=== PATIENT | female | born 1955 | race Two or more races ===

== ENCOUNTER 2017-10-04 08:43 | Outpatient (CLI) | payer OTHER | END 2017-10-04 17:00 | disposition home or self-care (01) | LOC: MRI 08:43 | DX: M54.5 Low back pain (principal); M50.322 Other cervical disc degeneration at C5-C6 level | CPT/HCPCS: 72141 ==

== ENCOUNTER → 2018-10-05 | Outpatient (CLI) | payer OTHER | END | disposition home or self-care (01) | LOC: MAMO-SONO 08:45 → SONOGRAMA 08:52 | DX: M75.32 Calcific tendinitis of left shoulder (principal); M19.012 Primary osteoarthritis, left shoulder ==